=== PATIENT | female | born 1995 | race Two or more races ===

== ENCOUNTER → 2023-07-10 | Emergency (ER) | payer OTHER ==
[~2023-07-10] VITALS: Ht 157.5 cm; Wt 46.7 kg
== END | disposition home or self-care (01) ==
LOC: ER 10:34
DX: J06.9 Acute upper respiratory infection, unspecified (principal)

== ENCOUNTER 2023-08-26 12:28 | Emergency (ER) | payer OTHER ==
[~2023-08-26] VITALS: Ht 160 cm; Wt 47.2 kg
[2023-08-26 14:21] LABS: HEMATOCRIT 35.4 % (36.0-45.00); HEMOGLOBIN 12.2 g/dL (12.0-15.00); MEAN CELL VOLUME 95.2 fL (80.00-100.00); MEAN CORPUSCULAR HEMOGLOBIN 32.8 pg (27.00-32.0); MEAN CORPUSCULAR HGB CONC 34.4 g/dl (32.0-36.0); PLATELET COUNT 225 K/uL (150-450); RED BLOOD COUNT 3.72 M/uL (4.00-6.00); RED CELL DISTRIBUTION WIDTH 13.7 % (11.5-14.5)
== END 2023-08-26 15:14 | disposition home or self-care (01) ==
LOC: ER 12:29
DX: J10.1 Influenza due to other identified influenza virus with other respiratory manifestations (principal); Z20.822 Contact with and (suspected) exposure to COVID-19